=== PATIENT | male | born 1965 | race African-American/Black ===

== ENCOUNTER 2018-01-05 08:22 | Emergency (ER) | payer SELFPAY ==
[~2018-01-05] VITALS: Ht 182.9 cm; Wt 86.0 kg
[2018-01-05 08:48] VITALS: BP 127/72
[2018-01-05] MEDS ORDERED: SODIUM CHLORIDE 0.9% 1,000 ML IV ONE (10:03)
== END 2018-01-05 11:15 | disposition left against medical advice (07) ==
LOC: ER 09:07
DX: R41.82 Altered mental status, unspecified (principal); I10 Essential (primary) hypertension; G92 Toxic encephalopathy; F10.929 Alcohol use, unspecified with intoxication, unspecified; E66.9 Obesity, unspecified; F17.200 Nicotine dependence, unspecified, uncomplicated; Z53.21 Procedure and treatment not carried out due to patient leaving prior to being seen by health care provider
CPT/HCPCS: 70450; 93005; 99284; J7030; Z7610